=== PATIENT | female | born 1950 | race African-American/Black ===

== ENCOUNTER 2020-06-21 11:25 | Day surgery (SDC) | payer OTHER ==
[2020-06-21] MEDS ORDERED: CEFAZOLIN/SWI 1gm 1 GM/10 ML SYR ONE (12:09)
[2020-06-21] MEDS ORDERED: Ringers Lactate 1,000 ML IV ONE (12:09)
[2020-06-21] MEDS ORDERED: NA CHLORIDE 0.9% 1,000 ML ONE (12:18)
[2020-06-21] MEDS ORDERED: propofoL 200 MG/20 ML VIAL IV ONE (12:22)
[2020-06-21] MEDS ORDERED: ONDANSETRON 4 MG/2 ML VIAL ONE (12:23)
[2020-06-21] MEDS ORDERED: MIDAZOLAM HCL 2 MG/2 ML INJ ONE (12:23)
[2020-06-21] MEDS ORDERED: FENTANYL CITR 100 MCG/2 ML ONE (12:23)
[2020-06-21] MEDS ORDERED: dexAMETHasone 4 MG/ML VIAL ONE (12:23)
[2020-06-21] MEDS ORDERED: LIDOCAINE 2% MPF 5 ML VIAL ONE (12:23)
[2020-06-21] MEDS ORDERED: ROCURONIUM 50 MG/5 ML VIAL IV ONE (12:30)
[2020-06-21] MEDS ORDERED: BUPIVACAINE 0.25% PF 30 ML VIAL ONE (12:38)
--- NOTE | 2020-06-21 13:14 | P.OP ---
Preoperative diagnosis: End Stage Renal Disease Postoperative diagnosis: End Stage Renal Disease Primary procedure: Laparoscopic peritoneal dialysis catheter placement Secondary procedure: Laparoscopic adhesiolysis Anesthesia: GETA + Local Estimated blood loss: <5cc Specimen: none Findings: intra-abdominal ahesions to midline, small bowel Complications: None Implants: Hair Double cuffed Peritoneal dialysis catheter Transferred to: Recovery Room () Condition: Good
[2020-06-21] MEDS ORDERED: GLYCOPYRROLATE 0.2 MG/ML SYR ONE ×2 (13:17→13:25)
[2020-06-21] MEDS ORDERED: NEOSTIGMINE 1 MG/ML -5 ML ONE (13:25)
[2020-06-21 14:52] VITALS: BP 128/72; TEMP 96; O2SAT 97
--- NOTE | 2020-06-22 00:18 | OP ---
Date of Procedure: 06/21/2020 Surgeon: Joe Michael MD, Preoperative Diagnosis: End-stage renal disease. Postoperative Diagnosis: End-stage renal disease. Procedure Performed: 1.Laparoscopic peritoneal dialysis catheter placement. 2.Laparoscopic adhesiolysis approximately 30 minutes. Anesthesia: General endotracheal plus local with 0.25% Marcaine. Estimated Blood Loss: Less than 5 cc. Specimen: None. Findings: Intraabdominal adhesions to the midline including small bowel and omentum. Complications: None. Implants: Merit double cuffed peritoneal dialysis catheter. Disposition: The patient was transferred to recovery room in good condition. Procedure In Detail: After informed consent was obtained, the patient was brought to the operating r oom, prepped and draped in the usual sterile fashion. After adequate anesthesia was achieved, the le ft upper quadrant area was anesthetized with 0.25% Marcaine, sharply incised. A 5 mm trocar was intr oduced in the abdomen without evidence of complication. Insufflation was obtained with 15 mmHg at th is time. There was no injury to vital structures upon entry into the abdomen. There were found to b e significant intraabdominal adhesions taking part of the right side of the abdomen as well as midlin e with small bowel and omental adhesions to the anterior abdominal wall. As such, I opted to place t he catheter in the left exit site. As such, the template was used to tarik a left abdominal exit site using the premade Stencil template. At this point, I made an incision over the skin after appropria tely anesthetizing the area. I placed the introducer sheath at a 45-degree angle, placed toward the patient's coccyx using the introducer sheath. Inner cannula was removed. The dilator was passed thr ough without evidence of complication and then the catheter was placed into the abdomen Coiling appro priately with the stripe posterior. At this point, the catheter flushed quite easily. There was no bowel or attachments anywhere in the vicinity of this catheter as they were predominantly in the vinny umbilical and upper abdominal area. At this point, the catheter was tunneled through a separate exit site and flushed once again and tested at this point, which was quite functional. At thi s point, I decompressed the abdomen under direct visualization. All trocars were removed. All skin incisions were copiously irrigated and closed with 4-Monocryl in a running fashion. Dermabond was pl aced over top. The patient tolerated the procedure well without evidence of complication and transfe rred to PACU in good condition. All counts were correct at the end of the case. DAVID/BLAYNE Voice ID: [id number] Report ID: [id number]
== END 2020-06-21 14:56 | disposition home or self-care (01) ==
LOC: OR 11:25
PROVIDERS: ATTEND Surgery
PROC: 0WHG43Z Insertion of Infusion Device into Peritoneal Cavity, Percutaneous Endoscopic Approach (ICD-10-PCS; principal; 2020-06-21 13:00)
DX: N18.6 End stage renal disease (principal); Z20.822 Contact with and (suspected) exposure to COVID-19
CPT/HCPCS: 49324; U0003; J2704; J1100; J2250; J3010; J2710; J0690; J7120; J7030; J2405